=== PATIENT | male | born 1945 | race Caucasian/White ===

== ENCOUNTER 2018-05-31 01:20 | Inpatient (IN) | payer MEDICARE ==
[2018-05-31 02:54] LABS: Mean Corpuscular HGB CONC 33.9 g/dL (32.0-36.0); Mean Corpuscular Hemoglobin 33.9 pg (27.0-31.0); Mean Platelet Volume 7.6 fL (7.4-10.4); Platelet Count 177 thou/uL (130-400); RBC Distribution Width 11.6 % (11.5-14.5); White Blood Cell (WBC) Count 6.8 thou/uL (4.8-10.8)
[2018-05-31 03:08] LABS: ALT (SGPT) 23 U/L (8-55); AST (SGOT) 21 U/L (5-34); Albumin 4.1 g/dL (3.4-4.8); Alkaline Phosphatase 59 U/L (40-150); Anion Gap 12 mmol/L (10-20); BUN (Urea Nitrogen) 18 mg/dL (8.4-25.7); Bilirubin, Total 0.6 mg/dL (0.2-1.2); Calc. Creatinine Clearance 0 mL/min (70-130); Carbon Dioxide 25 mmol/L (23-31); Chloride 107 mmol/L (98-107); Estimated GFR-MDRD 71; Globulin 2.8 g/dL (2.4-3.5); Glucose 95 mg/dL (83-110); Lipase 36 U/L (8-78); Protein, Total 6.9 g/dL (5.8-8.1); Sodium 140 mmol/L (136-145)
[2018-05-31 03:10] LABS: Band 3 % (5-11); Eosinophils 4 % (0-10); Lymphocytes 63 % (21-51); MDiff Complete? YES; Monocytes 8 % (0-10); Neutrophil 22 % (42-75)
[2018-05-31] MEDS ORDERED: HYDROcodone/Acetaminophen 10/325 mg Tablet ONE (04:02)
[2018-05-31 04:27] LABS: Bilirubin Negative (Negative); Blood, Urine Negative (Negative); Clarity CLEAR (Clear); Glucose, Urine (Dipstick) Negative (Negative); Leukocyte Negative (Negative); Nitrite Negative (Negative); Protein, Urine (Dipstick) Negative (Neg-Trace); Specific Gravity, Urine 1.034 (1.002-1.036); Urobilinogen 0.2 mg/dL (0.2-1.0); pH, Urine 5.5 (5.0-9.0)
[2018-05-31] MEDS ORDERED: Enoxaparin Sodium 100 MG/ML SYRINGE ONE (04:58)
[2018-05-31 05:38] LABS: PTT 29.5 SEC (22.9-36.1); Prothrombin Time 13.3 SEC (12.0-14.7)
[2018-05-31 05:45] LABS: CKMB 1.3 ng/mL (0-6.6); Troponin I Less than 0.010 ng/mL (< 0.028)
[2018-05-31] MEDS ORDERED: Lorazepam 1 MG TAB ONE (08:11)
[2018-05-31 08:46] LABS: Troponin I Less than 0.010 ng/mL (< 0.028)
--- NOTE | 2018-05-31 08:58 | RAD ---
CHEST 1 VIEW: HISTORY: Dyspnea. COMPARISON: 01/11/16. FINDINGS: Normal cardiac silhouette. The pulmonary vessels and hilum are normal. Costophrenic angles are du r. No masses or consolidation. No pneumothorax or osseous abnormalities. IMPRESSION: No acute cardiopulmonary process. POS: [facility]
[2018-05-31] MEDS ORDERED: ISOVUE-370 76%-LOCM 1 ML ONE (09:03)
--- NOTE | 2018-05-31 11:27 | CON ---
DATE OF CONSULTATION: 05/31/2018 He was seen in the emergency room on 05/31/2018 at the request of the emergency room physician in [facility]. HISTORY: This is a very pleasant 70-year-old gentleman I have followed for many years. 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 We have been following this for quite some time. He was in the [facility] room today due to abdominal pain and on CT scan, it was noted he had a left ventricular thromb us and we were asked to consult on the patient for this. This is not a new finding in this patient, but has not been notified by CT scan in the past, but he had been tried on Xarelto and said he could not take this medication, so he has been maintained on aspirin and Plavix for the left ventricular an eurysm and thrombus which has been present at least since 2014 and he has been stable since that time . His abdominal pain has also been present for quite some time, but is totally unrelated to the card iac status. He denies any significant chest pain or shortness of breath. He occasionally does have some chest discomfort, but EKGs have remained stable. Cardiac enzymes are negative. At the time of his cardiac catheterization in 2014 he has a 30% right coronary artery stenosis and also had a 50% le ft circumflex stenosis as well as an intermediate branch which also was 30-50%, the distal left anter ior descending artery with 75% stenosis filled by right to left collaterals. The proximal left anter ior descending where previously a stent had been placed was 100% occluded and the ejection fraction w as about 40-45%. His last echocardiogram also showed ejection fraction to be around 40-45% with an a pical thrombus still being present. Otherwise, he is stable. He has been given medications for his abdominal pain. The CT scan did not show any acute changes and it is uncertain of the etiology of th e abdominal discomfort, but with [place] his pain has pretty much resolved, but is still somewhat prese nt in the abdomen. Otherwise, he has had no cardiac complaints. He does have occasional shortness o f breath; however, but has not been doing much physical activity due to back pain and he attributes s ome of his shortness of breath to exertion once he does try to do some physical work, but otherwise r emained relatively active and continues with his daily living. PAST MEDICAL HISTORY: Significant for the coronary artery disease, ischemic cardiomyopathy, ischemic colitis in the past. He has had a cardiac catheterization, status post myocardial infarction. He h as had a colonoscopies performed. He has a history of renal nephrolithiasis. 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 He has a history of paroxysmal atrial fibrillation that has been s table and has remained in sinus rhythm. He has a history of gastroesophageal reflux disease. He has a history of hypertension. He has had a cholecystectomy. He has chronic prostatitis. He has a his tory of anxiety. ALLERGIES: He is allergic to LATEX, AZITHROMYCIN, GLUTEN, IBUPROFEN, CIPROFLOXACIN, MOTRIN. REVIEW OF SYSTEMS: He mainly complains of back pain, leg pain and toe numbness. He feels his toes a re swollen, but they are not, he complains of abdominal discomfort and occasional shortness of breath . FAMILY HISTORY: Noncontributory. SOCIAL HISTORY: He rarely drinks alcohol. He drinks some caffeine, but he does not smoke. He has n ever smoked. He is , has children who are alive and well. PHYSICAL EXAMINATION: VITAL SIGNS: Stable. Blood pressure is 120 systolically, heart rate is in the 60s and shows a sinus rhythm. HEENT: Shows the head to be normocephalic and atraumatic. Carotid pulses are present. I did not he ar any bruits. CHEST: Clear to auscultation without rales, rhonchi or wheezing. CARDIOVASCULAR: Exam reveals a regular rate and rhythm. He has a normal S1, S2. There is no S3, S4 . There were no significant murmurs, heaves, thrills, bruits or rubs. ABDOMEN: Soft. He does have some mild left lower quadrant tenderness. I cannot palpate any masses. EXTREMITIES: Show no clubbing, cyanosis or edema. Pedal pulses are present. NEUROLOGIC: The patient appears to be intact psychologically and also appears to be oriented to time , place, person. He appears to be appropriate. SKIN: Warm and dry. IMAGING: EKG is unremarkable and shows a sinus rhythm. Cardiac enzymes are unremarkable, they are n egative for any evidence of ischemia or myocardial infarction. IMPRESSION: 1. Acute abdominal pain of uncertain etiology. The CT scan is unremarkable. 2. On the CT scan he was noted to have a left ventricular thrombus, this is not a new finding. This is well known to me. It has been present since 2015 after he suffered an anterior myocardial infarc tion many years ago. He will continue on the aspirin and Plavix. 3. History of ischemic cardiomyopathy which has remained stable. His last echocardiogram showed eje ction fraction approximately 45%. 4. Intermittent atrial fibrillation and flutter. He has remained stable with this also and has had no further problems. 5. History of hypercholesterolemia. He continues on his medications. 6. There is some history of abdominal aortic aneurysm. We will also review the CT scan for further evaluation. At this time, from a cardiac standpoint, he is stable and can be discharged from my perspective.
--- NOTE | 2018-05-31 12:15 | CT ---
PRELIMINARY REPORT/[facility]/EMERGENCY AFTER HOURS PROCEDURE: Addendum created by Boone Ya MD on 05/31/2018 4:40 AM Central Time ([place] & [place]) The findings wer e verbally communicated via telephone conference with GAEL AARON at 4:38 AM CDT on 05/31/2018. Cody cordova Report created on 05/31/2018 4:35 AM Central Time ([place] & [place]) EXAM: CT Abdomen and Pelvis With Intravenous Contrast CLINICAL HISTORY: 73 years old, male; Pain; Abdominal pain; Generalized; Patient HX: 73 year old male presents with a 1 month history of lower left quadrant abdominal pain. He states that it worsened acutely around 22: 0 0 last night which prompted his visit to the ed. He took one norco which did not help. He states that he has a history of diverticulitis. He was hospitalized appx 13 months ago. He has had two courses o f antibiotics in the last month due to concerns for diverticulitis flares. He follows with dr. Puentes and was scheduled to have repeat CT scan of abdomen/pelvis tomorrow. Patient denies fever, nausea, vomiti ng, chest pain, or shortness of breath. He denies dysuria. He does endorse a history of kidney stones requiring lithotripsy previously. TECHNIQUE: Axial computed tomography images of the abdomen and pelvis with intravenous contrast. Coronal reforma tted images were created and reviewed. COMPARISON: No relevant prior studies available. FINDINGS: Lung bases: No acute findings. Thinning of the left ventricular apex with slight bulging and 1 x 2.3 cm lobular adjacent luminal hypodensity. Small hiatal hernia. ABDOMEN: Liver: Unremarkable. Gallbladder and bile ducts: Cholecystectomy. Pancreas: Unremarkable. Spleen: Unremarkable. Adrenals: Normal. Kidneys and ureters: Several nonobstructive bilateral renal stones measuring up to 4 mm. Symmetric nephrograms. No ureteral stone or hydronephrosis. Stomach and bowel: Sigmoid diverticulosis. Otherwise unremarkable. No focal inflammatory changes or e vidence of obstruction. PELVIS: Appendix: No findings to suggest acute appendicitis. Bladder: Unremarkable. Reproductive: Unremarkable. ABDOMEN and PELVIS: Intraperitoneal space: No free air. No significant fluid collection. Bones/joints: Unremarkable. No acute fracture. Soft tissues: Unremarkable. Vasculature: Mild infrarenal aortic ectasia, 2.6 cm. Lymph nodes: Unremarkable. No enlarged lymph nodes. IMPRESSION: 1. No acute findings. Sigmoid diverticulosis without evidence of diverticulitis. 2. Findings suggestive of old infarct with small aneurysm and adjacent thrombus at the left ventricul ar apex. Thank you for allowing us to participate in the care of your patient. Dictated and Authenticated by: Boone Ya MD 05/31/2018 4:35 AM Central Time ([place] & [place]) FINAL REPORT CT ABDOMEN WITH CONTRAST: CT PELVIS WITH CONTRAST: HISTORY: Left lower quadrant pain. COMPARISON: 01/10/2016 FINDINGS: This report is in agreement with the preliminary report by [facility]. There are bilateral nonobstructing renal calculi. There is no evidence of bowel obstruction. The ga llbladder is surgically absent. Normal caliber appendix. Occasional diverticulum in the sigmoid col on. No diverticulitis. Chronic changes to the apex of the left ventricle when compared to the prior exam. POS: [facility]
--- NOTE | 2018-06-04 11:32 | EKG ---
Test Reason : CP Blood Pressure : / mmHG Vent. Rate : 070 BPM Atrial Rate : 070 BPM P-R Int : 158 ms QRS Dur : 090 ms QT Int : 376 ms P-R-T Axes : 085 -33 072 degrees QTc Int : 406 ms Poor data quality, interpretation may be adversely affected Normal sinus rhythm Left axis deviation Septal infarct , age undetermined T wave abnormality, consider lateral ischemia Abnormal ECG No change from 04/2017 Confirmed by GALEN WATSON, FELICITAS ([id number]), field map editor GUILLERMO RIDDLE ([id number]) on 06/04/2018 11:32:39 AM Referred By: Confirmed By:FELICITAS AARON MD
== END 2018-05-31 12:20 | disposition home or self-care (01) | DRG 303 ==
LOC: ERS 01:20 → ERHOLD 05:00
PROVIDERS: ADMIT Hospitalist; ATTEND Hospitalist
DX: I51.3 Intracardiac thrombosis, not elsewhere classified (principal); I25.10 Atherosclerotic heart disease of native coronary artery without angina pectoris; I25.2 Old myocardial infarction; I48.0 Paroxysmal atrial fibrillation; K21.9 Gastro-esophageal reflux disease without esophagitis; I10 Essential (primary) hypertension; N41.1 Chronic prostatitis; F41.9 Anxiety disorder, unspecified; Z91.040 Latex allergy status; Z79.02 Long term (current) use of antithrombotics/antiplatelets; Z79.82 Long term (current) use of aspirin; E78.00 Pure hypercholesterolemia, unspecified
CPT/HCPCS: 36415; 71045; 74177; 80053; 81003; 82553; 83690; 83880; 84484; 85025; 85610; 85730; 93005; 96360; 96372; J1650; J2270

== ENCOUNTER 2019-10-09 06:05 | Day surgery (SDC) | payer MEDICARE ==
[2019-10-09 09:16] LABS: #Basophils 0.1 thou/uL (0.0-0.2); #Eosinphils 0.1 thou/uL (0.0-0.7); #Lymphocytes 2.3 thou/uL (1.20-3.40); #Monocytes 0.8 thou/uL (0.11-0.59); #Neutrophils 3.5 thou/uL (1.40-6.50); %Basophils 1.6 % (0.0-1.0); %Eosinophils 1.2 % (0.0-10.0); %Lymphocytes 34.1 % (21.0-51.0); %Monocytes 11.3 % (0.0-10.0); %Neutrophils 51.8 % (42.0-75.0); Hemoglobin 14.9 g/dL (14.0-18.0); Mean Corpuscular HGB CONC 34.1 g/dL (32.0-36.0); Mean Corpuscular Hemoglobin 33.9 pg (27.0-31.0); Mean Corpuscular Volume 99.5 fL (78.0-98.0); Mean Platelet Volume 7.6 fL (7.4-10.4); Platelet Count 162 thou/uL (130-400); Red Blood Cell (RBC) Count 4.38 mill/uL (4.70-6.10); White Blood Cell (WBC) Count 6.8 thou/uL (4.8-10.8)
[2019-10-09 09:39] LABS: ALT (SGPT) 23 U/L (8-55); AST (SGOT) 19 U/L (5-34); Albumin 3.8 g/dL (3.4-4.8); Alkaline Phosphatase 58 U/L (40-110); Anion Gap 13 mmol/L (10-20); BUN (Urea Nitrogen) 14 mg/dL (8.4-25.7); Bilirubin, Total 1.2 mg/dL (0.2-1.2); Calc. Creatinine Clearance 71 mL/min (70-130); Calcium 8.9 mg/dL (7.8-10.44); Carbon Dioxide 24 mmol/L (23-31); Chloride 107 mmol/L (98-107); Estimated GFR-MDRD 54; Globulin 2.5 g/dL (2.4-3.5); Glucose 101 mg/dL (83-110); Potassium 4.7 mmol/L (3.5-5.1); Protein, Total 6.3 g/dL (5.8-8.1); Sodium 139 mmol/L (136-145)
[2019-10-09] MEDS ORDERED: PROPOFOL 200 MG/20 ML VIAL ONE (09:59)
--- NOTE | 2019-10-09 16:18 | OP ---
DATE OF PROCEDURE: 10/09/2019 PRE-PROCEDURE DIAGNOSES: 1. History of Gar esophagus. 2. History of irritable bowel syndrome. 3. History of intermittent right lower quadrant pain. 4. History of gallstones. 5. History of polyps. PROCEDURE: Esophagogastroduodenoscopy with biopsy and colonoscopy, diagnostic. ANESTHESIA: TIVA. POSTOPERATIVE DIAGNOSES: 1. No evidence of polyps, mild diverticulosis. 2. No cause of right lower quadrant pain seen. 3. Esophagogastroduodenoscopy for small hiatal hernia and short-segment Gar's with no evidence of abnormalities. Biopsies obtained from the GE junction. DESCRIPTION OF PROCEDURE: After the patient was informed of the risk, benefits, and possible complications of endoscopy including perforation, bleeding, reaction to medication, and aspiration, informed consent was obtained. The patient was brought to endoscopy suite, where he was sedated in gradual fashion. Once he was comfortable, a bite block was placed inside his orifice. The endoscope was advanced to the esophagus, stomach, and second and third portions of the duodenum and was slowly removed. The duodenum was normal. The stomach was normal. Retroflexed views showed small hiatal hernia. The biopsies taken from the GE junction for history of short-segment Gar's and submitted to Pathology. Remainder of the esophagus was normal except for slight erythema at the GE junction consistent with reflux. The scope was removed. The patient was returned to the room. The rectal exam was performed. The endoscope was advanced to the anal canal through the colon to the cecum which was identified by the cecal valve, appendiceal orifice. The valve and appendiceal area were normal. There was no abnormalities to suggest the patient's cause of intermittent right lower quadrant pain. There were no polyps or some scars in the left colon consistent with previous polypectomy. Retroflexed views of the rectum were normal. The scope was removed, the patient tolerated the procedure well. RECOMMENDATIONS: 1. Follow up in the office in 3 weeks. 2. Labs and UA as per his urologist. If there is evidence of blood, he will need a CAT scan to evaluate for stones. If not, some consideration be given to CAT scan of the abdomen and pelvis. He has had these in the past, but may re-evaluate. He has history of vascular disease and previous ischemic colitis. No evidence of these were seen on today's study. 3. He will resume his anticoagulation today. Job ID: [id number]
== END 2019-10-09 10:30 | disposition home or self-care (01) ==
LOC: SDC 06:05
PROVIDERS: ATTEND Internal Medicine Gastroenterology
PROC: 0DJD8ZZ Inspection of Lower Intestinal Tract, Via Natural or Artificial Opening Endoscopic (ICD-10-PCS; principal; 2019-10-09)
PROC: 0DB48ZX Excision of Esophagogastric Junction, Via Natural or Artificial Opening Endoscopic, Diagnostic (ICD-10-PCS; 2019-10-09)
DX: K21.0 Gastro-esophageal reflux disease with esophagitis (principal); K22.70 Barrett's esophagus without dysplasia; K44.9 Diaphragmatic hernia without obstruction or gangrene; R10.31 Right lower quadrant pain; I25.2 Old myocardial infarction; E78.5 Hyperlipidemia, unspecified; I25.10 Atherosclerotic heart disease of native coronary artery without angina pectoris; G47.33 Obstructive sleep apnea (adult) (pediatric); I11.0 Hypertensive heart disease with heart failure; I50.9 Heart failure, unspecified; Z86.010 Personal history of colon polyps; Z86.73 Personal history of transient ischemic attack (TIA), and cerebral infarction without residual deficits; Z79.01 Long term (current) use of anticoagulants; Z79.02 Long term (current) use of antithrombotics/antiplatelets; Z79.899 Other long term (current) drug therapy; Z88.1 Allergy status to other antibiotic agents; Z88.8 Allergy status to other drugs, medicaments and biological substances; Z91.018 Allergy to other foods; Z91.040 Latex allergy status; Z95.5 Presence of coronary angioplasty implant and graft; Z99.89 Dependence on other enabling machines and devices
CPT/HCPCS: 36415; 80053; 85025; 88305; 88312; 88313; J2704

== ENCOUNTER 2020-02-28 09:06 | Outpatient (CLI) | payer MEDICARE ==
--- NOTE | 2020-02-28 09:40 | RAD ---
EXAM: Single view of the abdomen HISTORY: Kidney stones and abdominal pain COMPARISON: 10/03/2013 FINDINGS: Single view of the abdomen shows a nonspecific, nonobstructive bowel gas pattern. A 4 mm ca lcification projects over the right renal shadow. No calcic lesions are seen projecting over the left renal shadow or along the course of the ureters. The bones are unremarkable. IMPRESSION: Right nephrolithiasis
== END 2020-02-28 09:07 | disposition home or self-care (01) ==
LOC: BICRAD 09:06
PROVIDERS: ATTEND Urology
DX: N20.0 Calculus of kidney (principal)
CPT/HCPCS: 74018

== ENCOUNTER 2021-07-02 11:25 | Outpatient (CLI) | payer MEDICARE | END 2021-07-02 11:26 | disposition home or self-care (01) | LOC: BICRAD 11:25 | PROVIDERS: ATTEND Urology | DX: N20.0 Calculus of kidney (principal) | CPT/HCPCS: 74018 ==

== ENCOUNTER 2022-12-16 09:18 | Outpatient (CLI) | payer MEDICARE ==
[2022-12-16 11:32] VITALS: BP 122/72; TEMP 97.4; BMI 28.0
[2022-12-16] MEDS ORDERED: Iopamidol 370 76% 100 ML VIAL ONE (12:38)
== END 2022-12-16 09:19 | disposition home or self-care (01) ==
LOC: BICCT 09:18 → CT 09:19
PROVIDERS: ATTEND Internal Medicine Cardiovascular Disease
DX: I71.43 Infrarenal abdominal aortic aneurysm, without rupture (principal); I77.1 Stricture of artery
CPT/HCPCS: 74175; 82565; Q9967

== ENCOUNTER 2023-05-31 13:06 | Outpatient (CLI) | payer MEDICARE | END 2023-05-31 13:07 | disposition home or self-care (01) | LOC: BICRAD 13:06 | PROVIDERS: ATTEND Urology | DX: N20.0 Calculus of kidney (principal) | CPT/HCPCS: 74018 ==

== ENCOUNTER 2023-06-15 15:02 | Inpatient (IN) | payer MEDICARE ==
[2023-06-15 15:44] LABS: Hematocrit 42.8 % (42.0-52.0); Hemoglobin 14.9 g/dL (14.0-18.0); Red Blood Cell (RBC) Count 4.37 mill/uL (4.70-6.10); White Blood Cell (WBC) Count 6.3 10x3/uL (4.8-10.8)
[2023-06-15 15:45] LABS: #Basophils 0.1 thou/uL (0.0-0.2); #Eosinphils 0.2 thou/uL (0.0-0.7); #Monocytes 0.8 thou/uL (0.11-0.59); #Neutrophils 2.1 thou/uL (1.40-6.50); %Basophils 0.8 % (0.0-1.0); %Eosinophils 3.2 % (0.0-10.0); %Lymphocytes 50.9 % (21.0-51.0); %Monocytes 11.9 % (0.0-10.0); Mean Corpuscular HGB CONC 34.8 g/dL (32.0-36.0); Mean Corpuscular Hemoglobin 34.1 pg (27.0-31.0); Mean Corpuscular Volume 97.9 fl (78.0-98.0); Mean Platelet Volume 10.2 fL (7.4-10.4); Platelet Count 190 10x3/uL (130-400); RBC Distribution Width 12.9 % (11.5-14.5)
[2023-06-15] MEDS ORDERED: Metoprolol Tartrate 5 MG/5 ML VIAL ONE (15:57)
[2023-06-15 16:07] LABS: Troponin I Less than 0.010 ng/mL (< 0.028)
[2023-06-15 16:10] LABS: ALT (SGPT) 27 U/L (8-55); AST (SGOT) 28 U/L (5-34); Albumin 4.1 g/dL (3.4-4.8); Alkaline Phosphatase 49 U/L (40-110); Anion Gap 17 mmol/L (10-20); BUN (Urea Nitrogen) 18 mg/dL (8.4-25.7); Bilirubin, Total 0.8 mg/dL (0.2-1.2); Calc. Creatinine Clearance 0 mL/min (70-130); Calcium 9.4 mg/dL (7.8-10.44); Carbon Dioxide 22 mmol/L (23-31); Chloride 106 mmol/L (98-107); Estimated GFR 62; Globulin 2.9 g/dL (2.4-3.5); Glucose 101 mg/dL (83-110); Magnesium 2.1 mg/dL (1.6-2.6); Potassium 4.2 mmol/L (3.5-5.1); Sodium 141 mmol/L (136-145)
[2023-06-15] MEDS ORDERED: Metoprolol Tartrate 25 MG TAB ONE (16:22)
[2023-06-15] MEDS ORDERED: Lorazepam 1 MG TAB ONE (16:30)
[2023-06-15 17:12] LABS: Bacteria/HPF None Seen HPF (None Seen); Bilirubin Negative (Negative); Blood, Urine Negative (Negative); CAUTI Indications for Culture Fever or rigors; Clarity Clear (Clear); Glucose, Urine (Dipstick) Normal (Negative); Ketone, Urine Negative (Negative); Leukocyte Negative Leu/uL (Negative); Nitrite Negative (Negative); Protein, Urine (Dipstick) Negative (Neg-Trace); RBC/HPF 0-3 HPF (0-3); Specific Gravity, Urine 1.021 (1.002-1.036); Squamous Epithelial None Seen HPF (0-3); Urobilinogen Normal mg/dL (Less than 2); WBC/HPF 0-3 HPF (0-3)
[2023-06-15 17:13] LABS: Urine Culture Reflex No No
[2023-06-15] MEDS ORDERED: Senokot S 8.6-50 MG TAB PO PRN (17:46)
[2023-06-15] MEDS ORDERED: Nitroglycerin 0.4 MG TAB (25 Tab Bottle) SL PRN (17:46)
[2023-06-15] MEDS ORDERED: Acetaminophen 325 MG TAB PO PRN (17:52)
[2023-06-15] MEDS ORDERED: Ondansetron PF 4 MG/2 ML Vial IVP PRN (17:52)
[2023-06-15] MEDS ORDERED: HYDROcodone/Acetaminophen 5/325 mg Tablet ONE (18:23)
[2023-06-15 18:56] LABS: Troponin I Less than 0.010 ng/mL (< 0.028)
[2023-06-15] MEDS ORDERED: Carvedilol 25 MG TAB PO SCH (21:00)
[2023-06-15] MEDS ORDERED: Clopidogrel Bisulfate 75 MG TAB PO SCH (21:00)
[2023-06-15 21:32] VITALS: BMI 28.3
[2023-06-15] MEDS: Carvedilol 3.125 MG TAB PO SCH (22:01)
[2023-06-15] MEDS: Lorazepam 1 MG TAB PO PRN (22:01)
[2023-06-15 22:29] LABS: Troponin I Less than 0.010 ng/mL (< 0.028)
[2023-06-16 04:51] LABS: #Eosinphils 0.2 thou/uL (0.0-0.7); #Monocytes 0.8 thou/uL (0.11-0.59); #Neutrophils 2.9 thou/uL (1.40-6.50); %Basophils 0.4 % (0.0-1.0); %Eosinophils 3.2 % (0.0-10.0); %Lymphocytes 44.8 % (21.0-51.0); %Monocytes 10.6 % (0.0-10.0); %Neutrophils 40.9 % (42.0-75.0); Hematocrit 37.1 % (42.0-52.0); Hemoglobin 12.8 g/dL (14.0-18.0); Mean Corpuscular HGB CONC 34.5 g/dL (32.0-36.0); Mean Corpuscular Hemoglobin 34.4 pg (27.0-31.0); Mean Corpuscular Volume 99.7 fl (78.0-98.0); Mean Platelet Volume 10.4 fL (7.4-10.4); Platelet Count 174 10x3/uL (130-400); Red Blood Cell (RBC) Count 3.72 mill/uL (4.70-6.10); White Blood Cell (WBC) Count 7.2 10x3/uL (4.8-10.8)
[2023-06-16 05:13] LABS: Anion Gap 12 mmol/L (10-20); BUN (Urea Nitrogen) 19 mg/dL (8.4-25.7); Calc. Creatinine Clearance 76 mL/min (70-130); Carbon Dioxide 26 mmol/L (23-31); Chloride 106 mmol/L (98-107); Estimated GFR 66; Glucose 95 mg/dL (83-110); Potassium 4.1 mmol/L (3.5-5.1); Sodium 140 mmol/L (136-145)
[2023-06-16] MEDS: HYDROcodone/Acetaminophen 5/325 mg Tablet PO PRN ×4 (05:56→22:24)
[2023-06-16] MEDS: Amiodarone 200 MG TAB PO SCH ×2 (08:21→20:30)
[2023-06-16] MEDS: Carvedilol 3.125 MG TAB PO SCH ×2 (08:21→20:29)
[2023-06-16] MEDS: Lisinopril 2.5 MG TAB PO SCH (08:21)
[2023-06-16] MEDS: Saccharomyces boulardii 250 MG CAP PO SCH (08:21)
[2023-06-16] MEDS ORDERED: Rivaroxaban 10 MG TAB PO SCH (09:00)
[2023-06-16] MEDS: Lorazepam 1 MG TAB PO PRN ×2 (14:07→22:23)
[2023-06-16] MEDS ORDERED: Gabapentin 100 MG CAP PO SCH (16:26)
[2023-06-16] MEDS: Gabapentin 100 MG CAP PO SCH (20:30)
[2023-06-17 04:30] LABS: Hematocrit 38.7 % (42.0-52.0); Hemoglobin 13.4 g/dL (14.0-18.0); Manual Diff?? YES; Mean Corpuscular HGB CONC 34.6 g/dL (32.0-36.0); Mean Corpuscular Volume 98.2 fl (78.0-98.0); Mean Platelet Volume 10.6 fL (7.4-10.4); Platelet Count 175 10x3/uL (130-400); RBC Distribution Width 12.6 % (11.5-14.5); Red Blood Cell (RBC) Count 3.94 mill/uL (4.70-6.10); White Blood Cell (WBC) Count 6.7 10x3/uL (4.8-10.8)
[2023-06-17 04:35] LABS: Delete Auto Diff?? YES
[2023-06-17 04:53] LABS: Anion Gap 13 mmol/L (10-20); BUN (Urea Nitrogen) 21 mg/dL (8.4-25.7); Calc. Creatinine Clearance 76 mL/min (70-130); Calcium 8.8 mg/dL (7.8-10.44); Carbon Dioxide 23 mmol/L (23-31); Cardiac Risk 2.9 (Less than 4.5); Chloride 106 mmol/L (98-107); Cholesterol 88 mg/dl (< 200 Desired); Estimated GFR 66; Glucose 101 mg/dL (83-110); HDL Cholesterol 30 mg/dL (>60 Neg Risk); LDL Cholesterol, Calculated 43 mg/dL; Potassium 3.9 mmol/L (3.5-5.1); Sodium 138 mmol/L (136-145); Triglycerides 75 mg/dL (Less than 150)
[2023-06-17 05:12] LABS: Anisocytosis SLIGHT = 6-15 cells HPF (0-5); CellaVision Operator ID lab.sh2; Eosinophils 2 % (0-10); Free T4 (Free Thyroxine) 0.89 ng/dL (0.70-1.48); Lymphocytes 59 % (21-51); Macrocytosis SLIGHT = 6-15 cells HPF (0-5); Monocytes 14 % (0-10); Neutrophil 25 % (42-75); Platelet Adequacy Comment Platelets Normal; Polychromasia SLIGHT = 2-3 cells HPF (0-2); Smudge Cells 18.8 %; Thyroid Stimulating Hormone 2.9998 uIU/mL (0.35-4.94); Total Cell Count 101
[2023-06-17] MEDS: Lorazepam 1 MG TAB PO PRN ×2 (09:00→21:18)
[2023-06-17] MEDS: HYDROcodone/Acetaminophen 5/325 mg Tablet PO PRN ×3 (09:00→21:16)
[2023-06-17] MEDS: Gabapentin 100 MG CAP PO SCH ×4 (09:01→21:15)
[2023-06-17] MEDS: Amiodarone 200 MG TAB PO SCH ×2 (09:01→21:16)
[2023-06-17] MEDS: Clopidogrel Bisulfate 75 MG TAB PO SCH (09:01)
[2023-06-17] MEDS: Saccharomyces boulardii 250 MG CAP PO SCH (09:01)
[2023-06-17] MEDS: Carvedilol 3.125 MG TAB PO SCH ×2 (09:01→21:15)
[2023-06-17] MEDS: Lisinopril 2.5 MG TAB PO SCH (09:01)
[2023-06-18] MEDS: Lorazepam 1 MG TAB PO PRN (06:07)
[2023-06-18] MEDS: HYDROcodone/Acetaminophen 5/325 mg Tablet PO PRN (06:18)
[2023-06-18] MEDS ORDERED: Rivaroxaban 10 MG TAB PO SCH (09:00)
[2023-06-18] MEDS ORDERED: FLU VACC QS2023(65UP)/MF59C/PF 60 MCG/0.5 ML SYRINGE IM ONE (09:00)
[2023-06-18] MEDS: Saccharomyces boulardii 250 MG CAP PO SCH (09:47)
[2023-06-18] MEDS: Gabapentin 100 MG CAP PO SCH ×2 (09:48→14:36)
[2023-06-18] MEDS: Amiodarone 200 MG TAB PO SCH (09:48)
[2023-06-18] MEDS: Carvedilol 3.125 MG TAB PO SCH (09:49)
[2023-06-18] MEDS: Lisinopril 2.5 MG TAB PO SCH (09:49)
[2023-06-18] MEDS: Clopidogrel Bisulfate 75 MG TAB PO SCH (09:50)
[2023-06-18 16:34] VITALS: BP 121/63; TEMP 97.9
== END 2023-06-18 16:00 | disposition home or self-care (01) | DRG 310 ==
LOC: ERS 15:02 → 2NO 17:43 → OBSVTOIN 06-16 15:54
PROVIDERS: ADMIT Internal Medicine; ATTEND Internal Medicine
PROC: 5A2204Z Restoration of Cardiac Rhythm, Single (ICD-10-PCS; principal; 2023-06-18)
PROC: B24BZZ4 Ultrasonography of Heart with Aorta, Transesophageal (ICD-10-PCS; 2023-06-18)
DX: I48.3 Typical atrial flutter (principal); I25.10 Atherosclerotic heart disease of native coronary artery without angina pectoris; I10 Essential (primary) hypertension; E78.5 Hyperlipidemia, unspecified; F41.1 Generalized anxiety disorder; M19.90 Unspecified osteoarthritis, unspecified site; I25.5 Ischemic cardiomyopathy; E78.00 Pure hypercholesterolemia, unspecified; Z79.01 Long term (current) use of anticoagulants; Z91.041 Radiographic dye allergy status; Z88.1 Allergy status to other antibiotic agents; Z98.890 Other specified postprocedural states; Z91.040 Latex allergy status; Z88.8 Allergy status to other drugs, medicaments and biological substances; Z79.890 Hormone replacement therapy; Z90.49 Acquired absence of other specified parts of digestive tract; Z95.5 Presence of coronary angioplasty implant and graft; Z82.49 Family history of ischemic heart disease and other diseases of the circulatory system; Z79.899 Other long term (current) drug therapy
CPT/HCPCS: 36415; 71045; 80048; 80053; 80061; 81001; 83735; 83880; 84439; 84443; 84481; 84484; 85025; 92960; 93005; 93010; 93306; 93312; J1650

== ENCOUNTER 2023-07-28 09:01 | Day surgery (SDC) | payer MEDICARE ==
[2023-07-27 12:03] VITALS: BMI 27.8
[2023-07-27 13:12] LABS: INR-International Normal Ratio 1.2; PTT 30.9 sec (22.0-33.0)
[2023-07-27 13:15] LABS: Anion Gap 14 mmol/L (10-20); BUN (Urea Nitrogen) 23 mg/dL (8.4-25.7); Calc. Creatinine Clearance 62 mL/min (70-130); Calcium 9.4 mg/dL (7.8-10.44); Carbon Dioxide 24 mmol/L (23-31); Chloride 109 mmol/L (98-107); Estimated GFR 52; Glucose 114 mg/dL (83-110); Hematocrit 44.5 % (38.8-50.0); Hemoglobin 15.2 g/dL (13.5-17.5); Mean Corpuscular HGB CONC 34.2 g/dL (32.0-36.0); Mean Corpuscular Hemoglobin 33.7 pg (27.0-33.0); Mean Corpuscular Volume 98.7 fl (81.2-95.1); Mean Platelet Volume 10.3 fl (7.4-10.4); Platelet Count 215 10x3/uL (150-450); Potassium 4.6 mmol/L (3.5-5.1); RBC Distribution Width 12.8 % (11.5-14.5); Red Blood Cell (RBC) Count 4.51 10x6/uL (4.32-5.72); Sodium 142 mmol/L (136-145)
[2023-07-28] MEDS ORDERED: Heparin 25,000 units/D5W 0 ML ONE (10:02)
[2023-07-28] MEDS ORDERED: Heparin 10,000 UNITS/ 10 ML VIAL ONE (10:02)
[2023-07-28] MEDS ORDERED: Scopolamine 1 mg/72 hour Patch ONE (10:12)
[2023-07-28] MEDS ORDERED: Lidocaine 1% PF 5 ML VIAL ONE (12:42)
[2023-07-28] MEDS ORDERED: Ondansetron PF 4 MG/2 ML Vial ONE (12:42)
[2023-07-28] MEDS ORDERED: ePHEDrine Sulfate 50 MG/10 ML VIAL ONE (12:42)
[2023-07-28] MEDS ORDERED: Dexamethasone 20 MG/5 ML VIAL ONE (12:42)
[2023-07-28] MEDS ORDERED: PROPOFOL 200 MG/20 ML VIAL ONE (12:42)
[2023-07-28] MEDS ORDERED: PHENYLEPHRINE-NS 100 MCG/ML 10 ML SYRINGE ONE (12:42)
[2023-07-28] MEDS ORDERED: Rocuronium Bromide 10 MG/ML (10ML VIAL) ONE (12:42)
[2023-07-28] MEDS ORDERED: Succinylcholine 200 MG/10 ml SYRINGE FS ONE (12:42)
[2023-07-28] MEDS ORDERED: DOPamine 400 MG/D5W 250 ML 250 ML ONE (13:07)
[2023-07-28] MEDS ORDERED: fentaNYL 50 mcg/mL 1 mL Vial ONE (15:13)
[2023-07-28] MEDS ORDERED: HYDROcodone/Acetaminophen 5/325 mg Tablet ONE (15:15)
[2023-07-28] MEDS ORDERED: Lorazepam 0.5 MG TAB PO SCH (15:45)
[2023-07-28] MEDS ORDERED: Midazolam HCl 2 mg/2 ml Vial ONE (16:10)
== END 2023-07-28 17:50 | disposition home or self-care (01) ==
LOC: SDC 09:01
PROVIDERS: ATTEND Internal Medicine Cardiovascular Disease
PROC: 4A0234Z Measurement of Cardiac Electrical Activity, Percutaneous Approach (ICD-10-PCS; principal; 2023-07-28)
PROC: 02583ZZ Destruction of Conduction Mechanism, Percutaneous Approach (ICD-10-PCS; 2023-07-28)
DX: I48.92 Unspecified atrial flutter (principal); Z91.041 Radiographic dye allergy status; Z91.040 Latex allergy status; Z91.048 Other nonmedicinal substance allergy status; Z88.1 Allergy status to other antibiotic agents; Z88.8 Allergy status to other drugs, medicaments and biological substances
CPT/HCPCS: 80048; 85027; 85610; 85730; 93005; 93621; 93653; 93662; C1732; C1759; C1760; C1894 ×2; C2630; J3010; J1100; J1265; J1644; J2250; J2405; J2704

== ENCOUNTER 2023-09-16 12:39 | Outpatient (CLI) | payer MEDICARE | END 2023-09-16 12:40 | disposition home or self-care (01) | LOC: BICRAD 12:39 | PROVIDERS: ATTEND Urology | DX: N20.0 Calculus of kidney (principal) | CPT/HCPCS: 74018 ==

== ENCOUNTER 2023-09-23 09:27 | Outpatient (CLI) | payer MEDICARE | END 2023-09-23 09:28 | disposition home or self-care (01) | LOC: BICRAD 09:27 | PROVIDERS: ATTEND Urology | DX: N20.0 Calculus of kidney (principal) | CPT/HCPCS: 74018 ==

== ENCOUNTER 2023-09-23 10:14 | Outpatient (CLI) | payer MEDICARE ==
[2023-09-23 11:39] LABS: Bilirubin Neg (Negative); Blood, Urine Negative (Negative); Glucose, Urine (Dipstick) Normal (Negative); Ketone, Urine Negative (Negative); Leukocyte Negative (Negative); Nitrite Negative (Negative); Protein, Urine (Dipstick) Negative (Neg-Trace); Urobilinogen Normal mg/dL (Less than 2)
[2023-09-23 11:41] LABS: Hematocrit 43.1 % (38.8-50.0); Hemoglobin 14.8 g/dL (13.5-17.5); Mean Corpuscular HGB CONC 34.3 g/dL (32.0-36.0); Mean Corpuscular Hemoglobin 33.7 pg (27.0-33.0); Mean Corpuscular Volume 98.2 fl (81.2-95.1); Mean Platelet Volume 10.2 fl (7.4-10.4); Platelet Count 204 10x3/uL (150-450); RBC Distribution Width 12.9 % (11.5-14.5); Red Blood Cell (RBC) Count 4.39 10x6/uL (4.32-5.72); White Blood Cell (WBC) Count 5.7 10x3/uL (3.5-10.5)
[2023-09-23 11:47] LABS: Clarity Clear (Clear)
[2023-09-23 12:03] LABS: Anion Gap 14 mmol/L (10-20); BUN (Urea Nitrogen) 17 mg/dL (8.4-25.7); Bacteria/HPF None Seen HPF (None Seen); Calc. Creatinine Clearance 0 mL/min (70-130); Calcium 9.1 mg/dL (7.8-10.44); Carbon Dioxide 21 mmol/L (23-31); Chloride 109 mmol/L (98-107); Estimated GFR 64; Glucose 99 mg/dL (83-110); Potassium 4.3 mmol/L (3.5-5.1); RBC/HPF None Seen HPF (0-3); Sodium 140 mmol/L (136-145); Squamous Epithelial 0-3 HPF (0-3); WBC/HPF None Seen HPF (0-3)
[2023-09-23 12:08] LABS: INR-International Normal Ratio 1.1; PTT 27.2 sec (22.0-33.0); Prothrombin Time 11.9 sec (9.5-12.1)
== END 2023-09-23 10:15 | disposition home or self-care (01) ==
LOC: LABBT 10:14
PROVIDERS: ATTEND Urology
DX: Z01.818 Encounter for other preprocedural examination (principal); N20.0 Calculus of kidney; N52.01 Erectile dysfunction due to arterial insufficiency; N41.1 Chronic prostatitis; I25.10 Atherosclerotic heart disease of native coronary artery without angina pectoris; I48.19 Other persistent atrial fibrillation
CPT/HCPCS: 80048; 81001; 85027; 85610; 85730; 87086; 93005; 93010

== ENCOUNTER 2024-09-18 12:23 | Outpatient (CLI) | payer MEDICARE | END 2024-09-18 12:24 | disposition home or self-care (01) | LOC: BICRAD 12:23 | PROVIDERS: ATTEND Urology | DX: N20.0 Calculus of kidney (principal) | CPT/HCPCS: 74018 ==

== ENCOUNTER 2025-05-28 11:44 | Outpatient (CLI) | payer MEDICARE | END 2025-05-28 11:45 | disposition home or self-care (01) | LOC: BICRAD 11:44 | PROVIDERS: ATTEND Urology | DX: N20.0 Calculus of kidney (principal) | CPT/HCPCS: 74018 ==